=== PATIENT | male | born 1995 | race Caucasian/White ===

== ENCOUNTER 2021-11-25 08:19 | Emergency (ER) | payer SELFPAY ==
[2021-11-25 08:19] VITALS: BP 164/101; PULSE 80; RESP 18; TEMP 36.6; O2SAT 100; BMI 40.8
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
--- NOTE | 2021-11-25 09:34 | RAD_ITS ---
STUDY: X-RAY CHEST REASON FOR EXAM: Male, 26 years old. INJURY TECHNIQUE: Single AP portable view of the chest. COMPARISON: None. FINDINGS: The lungs are clear and expanded. There is no demonstrated pleural abnormality. Normal size heart. Normal mediastinum and mehreen. Normal visualized pulmonary arteries. Normal visualized aortic arch and descending thoracic aorta. Normal visualized thoracic spine. Normal visualized ribs, clavicles, and shoulders. There is no demonstrated abnormality of the visualized soft tissue structures of the upper abdomen. RAD/Chest 1 View (Portable) IMPRESSION: Normal x-ray examination of the chest. Electronically Signed: Everton Ashton MD at 10:10 EDT ,
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
== END 2021-11-25 11:49 | disposition home or self-care (01) ==
PROVIDERS: Emergency Provider Emergency Medicine; Visit Provider Emergency Medicine
DX: S43.402A Unspecified sprain of left shoulder joint, initial encounter (principal); S16.1XXA Strain of muscle, fascia and tendon at neck level, initial encounter; S20.20XA Contusion of thorax, unspecified, initial encounter; S90.31XA Contusion of right foot, initial encounter; S63.502A Unspecified sprain of left wrist, initial encounter; V43.62XA Car passenger injured in collision with other type car in traffic accident, initial encounter; Y92.488 Other paved roadways as the place of occurrence of the external cause
CPT/HCPCS: 71045; 73110; 73630; 99283

== ENCOUNTER 2022-01-05 22:25 | Emergency (ER) | payer SELFPAY ==
[2022-01-05 22:26] VITALS: BP 149/96; PULSE 142; RESP 22; TEMP 37.3; O2SAT 97; BMI 39.9
--- NOTE | 2022-01-05 22:54 | EKG12_ITS ---
Test Reason : DYSRHYTHMIA Blood Pressure : / mmHG Vent. Rate : 143 BPM Atrial Rate : 144 BPM P-R Int : 130 ms QRS Dur : 096 ms QT Int : 354 ms P-R-T Axes : 052 008 032 degrees QTc Int : 546 ms Sinus tachycardia Otherwise normal ECG Confirmed by RENAE THOMPSON, ELIA ([id number]), editorial cartoonist LYNNETTE ROCHA ([id number]) on 01/06/2022 11:43:34 AM Referred By: FELIPA Confirmed By:ELIA MACDONALD MD
[2022-01-05 23:03] VITALS: BP 155/71; PULSE 123; RESP 19; O2SAT 98
[2022-01-05 23:06] LABS: Red Blood Cells-Urine 0 SEEN /hpf (0-5); Squamous Epithelial Cells - UA 0 SEEN /hpf (0-5)
[2022-01-05 23:16] LABS: Absolute Lymphocyte Count 2.29 X10^3/uL (0.83-4.51); Absolute Neutrophil Count 6.6 X10^3/uL (2.0-7.7); Basophil# 0.05 X10^3/uL; Basophil% 0.5 % (0-1); Eosinophil# 0.05 X10^3/uL; Eosinophils% 0.5 % (0-5); Hematocrit 43.2 % (40-54); Hemoglobin 14.5 g/dL (13.0-16.5); Lymphocyte # 2.29 X10^3/ul (0.83-4.51); Lymphocyte % 23.7 % (19-41); Mean Corp Hgb Conc 33.6 g/dL (32-36); Mean Corpuscular Hgb 28.9 pg (27.0-32.0); Mean Corpuscular Volume 86.2 fL (80-94); Mean Platelet Vol. 10.6 fl (6.2-12.0); Monocyte# 0.68 X10^3/uL; NRBC Flagged by Analyzer 0 % (0-5); Neutrophil # 6.55 X10^3/uL (2.7-7.7); Platelet Count 342 K/mm3 (150-450); RBC Distribution Width CV 13.1 % (11.6-14.6); RBC Distribution Width SD 40.7 fl (35.1-43.9); Red Blood Count 5.01 M/mm3 (4.6-6.2); White Blood Count 9.7 K/mm3 (4.4-11.0)
[2022-01-05 23:35] LABS: Color, Urine Yellow (Yellow); Glucose, Dipstick Normal (Normal); Ketone-Dipstick 5 mg/dl (Negative); Leukocyte Esterase-Dipstick 25 /ul (Negative); Nitrite-Dipstick Negative (Negative); Occult Blood-Urine 10 /ul (Negative); Protein-Dipstick 30 mg/dl (Negative); Urine Bilirubin Dipstick Negative (Negative); Urine Clarity Clear (Clear); Urine Urobilinogen 1 mg/dl (Normal)
[2022-01-05 23:46] LABS: Anion Gap 9 (5-15); BUN 17 mg/dL (7-18); BUN/Creat Ratio 13.3 RATIO (10-20); Calcium,Total 9.5 mg/dL (8.5-10.1); Chloride 106 mmol/L (98-107); Creatinine, Serum 1.28 mg/dL (0.70-1.30); EST Glomerular Filtration Rate 71 mL/min (>60); Est Glom Filt Rate - Afr Amer 86 mL/min (>60); Estimated Creatinine Clearance 89.51 ml/min; Glucose 119 mg/dL (74-106); Potassium 3.1 mmol/L (3.5-5.1); Sodium Level 138 mmol/L (136-145)
[2022-01-05 23:53] LABS: Bacteria 1+ /hpf (None Seen); Mucous, Urine 2+ /hpf (<or=2+); White Blood Cells 0-5 SEEN /hpf (0-5)
[2022-01-06] MEDS: Mag Hydrox/Al Hydrox/Simeth 30 ML UDC PO (00:21)
[2022-01-06] MEDS: 0.9% Normal Saline 1,000 ML 999 ML IV (00:21)
[2022-01-06] MEDS: LORazepam 2 MG/ML Syringe 1 MG IV (00:21)
[2022-01-06 00:27] LABS: AST(SGOT) 23 U/L (15-37); Alanine Aminotransfer ALT/SGPT 26 U/L (16-61); Albumin, Serum 4.5 g/dL (3.2-5.0); Alkaline Phosphatase 71 U/L (45-117); Bilirubin, Direct 0.13 mg/dL (0.00-0.30); Globulin 3.6 g/dL (2.2-4.2); Lipase 52 U/L (73-393); Protein, Total 8.1 g/dL (6.4-8.2)
[2022-01-06 01:31] VITALS: BP 148/71; PULSE 87; RESP 22; O2SAT 98
--- NOTE | 2022-01-06 01:59 | EDS_ITS ---
HPI History of Present Illness Chief Complaint: Abd Pain Narrative Narrative: Patient is a 26-year-old male who states that over the past month he has had persistent midepigastric abdominal pain that seems to be worse in the morning and with eating. He states because of this he has decreased what he is eating and has also lost approximately 30 pounds. He states that today he googled his symptoms and after doing so became very nervous and anxious and therefore comes to the hospital for evaluation. PFSH PFS Medical History (Updated 01/06/22 @ 02:[address] Scot Dumas, DO) Anxiety COVID-19 Home Medications lorazepam [Ativan] 1 mg PO TID PRN 5 Days #15 tab 01/06/22 [Rx Last Taken Unknown] pantoprazole [Protonix] 40 mg PO DAILY #30 tab 01/06/22 [Rx Last Taken Unknown] sucralfate [Carafate] 1 g PO BID #60 tab 01/06/22 [Rx Last Taken Unknown] Allergy/AdvReac Type Severity Reaction Status Date / Time No Known Allergies Allergy Verified 01/05/22 22:26 Social History Smoking Status: Never smoker ROS [facility] ED Constitutional Constitutional ED: Denies chills or fever(s) ENT ENT ED: Reports sore throat Cardiovascular Cardiovascular: Denies chest pain Respiratory/Chest Respiratory/Chest: Denies cough or dyspnea Gastrointestinal Gastrointestinal: Reports abdominal pain and nausea; Denies diarrhea or vomiting Genitourinary Genitourinary ED: Denies dysuria Musculoskeletal Musculoskeletal: Denies myalgias Integumentary Denies rash Neurologic Neurologic: Denies headache(s) Psychiatric Psychiatric: Reports anxiety; Denies suicidal ideation or suicidal thoughts Hematologic/Lymphatic Hematologic/Lymphatic: Denies easy bleeding or easy bruising EXAM Physical Exam Const Vital Signs: 01/05/22 22:26 01/05/22 23:03 01/06/22 01:31 Temperature 99.1 F Temperature Source Temporal Pulse Rate 142 H 123 H 87 Respiratory Rate 22 H 19 H 22 H Blood Pressure 149/96 H 155/71 H 148/71 H Blood Pressure Mean 113 99 96 Pulse Ox 97 98 98 Oxygen Delivery Method Room Air Room Air Room Air 01/06/22 02:08 Temperature Temperature Source Pulse Rate 82 Respiratory Rate 16 Blood Pressure 147/64 H Blood Pressure Mean Pulse Ox 97 Oxygen Delivery Method Positive well nourished, well developed and obese General Appearance ED: well developed Nutritional Appearance: obese HEENT Reports dry mucous membranes Mouth ED: Yes dry mucous membranes Mouth: dry mucous membranes Eyes PERRL and EOMs intact bilaterally General Eye ED: Negative for scleral icterus Neck supple Resp normal respiratory effort and clear to auscultation bilaterally Cardio regular rhythm Rate: tachycardic GI non-distended and no masses GI Narrative: There is mild pain with palpation in the midepigastric region without voluntary guarding or rigidity. No pulsatile mass or fluid wave Auscultation: normoactive bowel sounds Palpation: soft Extremity normal to inspection Neuro oriented x3 and CN's II-XII intact bilaterally Sensorium / Orientation: alert Motor Exam: strength 5/5 throughout Psych Mood & Affect: anxious Skin no rashes or lesions noted General Skin Exam: Negative for jaundice MDM MDM MDM Narrative Medical decision making narrative: Patient arrived to the ER mildly hypertensive and was also tachycardic but EKG showed this was sinus rhythm. Patient related his tachycardia to his anxiety and once he was able to rest and relax did have spontaneous improvement of his heart rate to below 100. His constellation of symptoms are concerning for gastritis versus ulcer formation. Secondary to this basic blood work will be obtained. As the patient is not having a rigid abdomen I do not feel there is need for a CT scan and therefore I feel no need for x-ray or CAT scan at this time. Blood work revealed no clinically significant findings with just mild decreased his potassium at 3.1. After IV hydration treatment GI cocktail Protonix and Ativan patient did report feeling better. Therefore at this time patient is safe for discharge as his work-up reveals no clinically significant findings in his abdomen remains soft and nonsurgical. He was advised to follow-up with GI to discuss need for EGD based on his persistent symptoms Lab Data Attestation: I reviewed the patient's lab results. Labs: Laboratory Results - last 24 hr 01/05/22 01/05/22 01/05/22 22:43 23:01 23:01 WBC 9.7 RBC 5.01 Hgb 14.5 Hct 43.2 MCV 86.2 MCH 28.9 MCHC 33.6 RDW Std Deviation 40.7 RDW Coeff of Maribel 13.1 Plt Count 342 MPV 10.6 Immature Gran % (Auto) 0.300 Neut % (Auto) 68.0 Lymph % (Auto) 23.7 Morrill % (Auto) 7.0 Eos % (Auto) 0.5 Baso % (Auto) 0.5 Absolute Neuts (auto) 6.6 Absolute Lymphs (auto) 2.29 Nucleated RBC % 0 Sodium 138 Potassium 3.1 L Chloride 106 Carbon Dioxide 23.0 Anion Gap 9 BUN 17 Creatinine 1.28 Estim Creat Clear Calc 89.51 Est GFR (MDRD) Af Amer 86 Est GFR (MDRD) Non-Af 71 BUN/Creatinine Ratio 13.3 Glucose 119 H Calcium 9.5 Total Bilirubin Direct Bilirubin AST ALT Alkaline Phosphatase Total Protein Albumin Globulin Lipase Urine Color Yellow Urine Clarity Clear Urine pH 6.0 Ur Specific [place] 1.030 Urine Protein 30 H Urine Glucose (UA) Normal Urine Ketones 5 H Urine Occult Blood 10 H Urine Nitrite Negative Urine Bilirubin Negative Urine Urobilinogen 1 H Ur Leukocyte Esterase 25 H Urine RBC 0 SEEN Urine WBC 0-5 SEEN Ur Squamous Epith Cells 0 SEEN Urine Bacteria 1+ Urine Mucus 2+ 01/05/22 23:01 WBC RBC Hgb Hct MCV MCH MCHC RDW Std Deviation RDW Coeff of Maribel Plt Count MPV Immature Gran % (Auto) Neut % (Auto) Lymph % (Auto) Morrill % (Auto) Eos % (Auto) Baso % (Auto) Absolute Neuts (auto) Absolute Lymphs (auto) Nucleated RBC % Sodium Potassium Chloride Carbon Dioxide Anion Gap BUN Creatinine Estim Creat Clear Calc Est GFR (MDRD) Af Amer Est GFR (MDRD) Non-Af BUN/Creatinine Ratio Glucose Calcium Total Bilirubin 0.70 Direct Bilirubin 0.13 AST 23 ALT 26 Alkaline Phosphatase 71 Total Protein 8.1 Albumin 4.5 Globulin 3.6 Lipase 52 L Urine Color Urine Clarity Urine pH Ur Specific [place] Urine Protein Urine Glucose (UA) Urine Ketones Urine Occult Blood Urine Nitrite Urine Bilirubin Urine Urobilinogen Ur Leukocyte Esterase Urine RBC Urine WBC Ur Squamous Epith Cells Urine Bacteria Urine Mucus Discharge Plan Triage Chief Complaint: Abd Pain ED Provider: Scot Dumas Dx/Rx/DC Orders Clinical Impression: Gastritis, Anxiety Instructions: ED Anxiety Reaction, ED PEPTIC ULCER vs GASTRITIS Prescriptions: New sucralfate [Carafate] 1 gram tablet 1 g PO BID Qty: 60 RF: 0 pantoprazole [Protonix] 40 mg tablet,delayed release (DR/EC) 40 mg PO DAILY Qty: 30 RF: 0 lorazepam [Ativan] 1 mg tablet 1 mg PO TID PRN (Reason: anxiety) 5 Days Qty: 15 RF: 0 Primary Care Provider: Care Physician,No Primary Referrals: Friend,DO Simeon [STAFF PHYSICIAN] - 1-2 Weeks Care Physician,No Primary [Primary Care Provider] - Disposition Disposition: Home, Self Care Discharge Date/Time: 01/06/22 02:21
[2022-01-06 02:08] VITALS: BP 147/64; PULSE 82; RESP 16; O2SAT 97
== END 2022-01-06 02:21 | disposition home or self-care (01) ==
PROVIDERS: Emergency Provider Emergency Medicine; Visit Provider Emergency Medicine
DX: K29.70 Gastritis, unspecified, without bleeding (principal); F41.9 Anxiety disorder, unspecified; R10.31 Right lower quadrant pain; Z86.16 Personal history of COVID-19; Z79.899 Other long term (current) drug therapy
CPT/HCPCS: 80048; 80076; 81001; 83690; 85025; 93005; 96365; 96375; 99282; J7030; A4216

== ENCOUNTER 2024-05-26 05:27 | Emergency (ER) | payer BC, SELFPAY ==
[2024-05-26] VITALS (12 sets, daily range): BP systolic 126–161; BP diastolic 76–99; PULSE 74–97; RESP 16–26; TEMP 36.4–36.7; O2SAT 96–100; BMI 38.5
--- NOTE | 2024-05-26 05:56 | CT_ITS ---
EXAM: CT HEAD WITHOUT INTRAVENOUS CONTRAST CLINICAL INDICATION: SEIZURE SEIZURE TECHNIQUE: Multiple axial images were obtained of the head without intravenous contrast. This CT exam was performed using one or more of the following dose reduction techniques: automated exposure control, adjustment of the mA and/or kV according to patient size, and/or use of iterative reconstruction technique. RADIATION DOSE: CTDIvol = 44.99 mGy, DLP = 812.98 mGy-cm COMPARISON: CT scan brain 05/10/2012. FINDINGS: BRAIN AND EXTRA-AXIAL SPACES: Unremarkable. No intra- or extra-axial hemorrhage. No evidence of acute infarct. No intracranial mass or mass effect. There is preservation of the gonzalez/white matter interface. Posterior fossa structures are unremarkable. Ventricles are appropriate for age. No hydrocephalus. Basal cisterns are patent. BONES/JOINTS: Unremarkable. No discrete lytic or blastic abnormalities. VASCULATURE: There are dilated vascular structures in the paramidline high right frontal region, which were also present on the 2012 exam. 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 Would recommend MRI/MRA for further evaluation, if not previously done. SINUSES: Unremarkable as visualized. Clear. MASTOID AIR CELLS: Unremarkable. Clear. ORBITS: Visualized globes, extraocular muscles, optic nerves and retrobulbar fat appear unremarkable. SELLA: There is prominent CSF in the pituitary fossa with a thin rim of pituitary tissue, consistent with a partial empty sella syndrome. CT/Brain/Head without Contrast IMPRESSION: 1. 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 Recommend MRI/MRA for further characterization, if not previously done. 2. No demonstrated acute intracranial process. Electronically Signed: Jignesh Blandon MD at 6:43 EDT ,
--- NOTE | 2024-05-26 05:56 | RAD_ITS ---
EXAM: XR LEFT SHOULDER COMPLETE, 2 OR MORE VIEWS CLINICAL INDICATION: PAIN PAIN TECHNIQUE: Two or more views of the left shoulder. COMPARISON: Chest x-ray 04/17/2011. FINDINGS: BONES/JOINTS: There is an anterior shoulder dislocation. There is an acute traumatic vertical fracture through the base of the greater humeral tubercle, with substantial lateral displacement relative to the humeral head. No sclerotic or destructive changes observed. SOFT TISSUES: Unremarkable. No soft tissue swelling or gas. No radiopaque foreign body. RAD/Shoulder min 2 Views IMPRESSION: Anterior shoulder dislocation. Displaced fracture of the greater humeral tubercle. Electronically Signed: Jignesh Blandon MD at 7:03 EDT Reading Location ID and State: [facility] / [place] , Service support ,
--- NOTE | 2024-05-26 06:00 | EX.ED.DYSGE1 ---
HPI <Dr. Scot Dumas DO - Last Filed: 05/28/24 22:00> History of Present Illness Chief Complaint: Alt LOC Informant: patient and spouse/S.O. Narrative Narrative: Patient is a 28-year-old male with anxiety. EMS was called because while patient was sleeping his felt that he stopped breathing and noticed that there was mild shaking and stated he became unresponsive. also reports that he seemed confused when he did awake. However when EMS arrived the patient was up and combative and not responding to commands. The patient complains of left shoulder pain at this time but denies any known trauma or excessive activity. Patient does admit to daily marijuana use but states he gets his marijuana from a reputable source and he does not have any concern that it was laced or contaminated. He also denies any significant alcohol use that would suggest alcohol withdrawal and he denies any benzodiazepine use which could precipitate benzodiazepine withdrawal as a cause of seizure activity. [facility] <Dr. Scot Dumas DO - Last Filed: 05/28/24 22:00> [facility] Medical History Marijuana smoker Anxiety COVID-19 Home Medications ?Medication ?Instructions ?Recorded ?Last Taken ?Type escitalopram oxalate 20 mg tablet 20 mg PO DAILY 05/26/24 Unknown History omeprazole 20 mg capsule,delayed 40 mg PO DAILY 05/26/24 Unknown History release oxycodone-acetaminophen 5 mg-325 1 tab PO Q6H PRN pain 3 days #12 05/26/24 Unknown Rx mg tablet (Percocet) tabs potassium chloride 10 mEq 10 meq PO DAILY 7 days #7 caps 05/26/24 Unknown Rx capsule,extended release Allergy/AdvReac Type Severity Reaction Status Date / Time No Known Allergies Allergy Verified 05/26/24 05:29 Family History no significant family his Surgical History no surgical history Social History Smoking Status: Current every day smoker tobacco type: e-cigarettes ROS <Dr. Scot Dumas DO - Last Filed: 05/28/24 22:00> ROS ED Constitutional Constitutional ED: Denies chills or fever(s) Eyes Eyes: Denies blurry vision or change in vision ENT ENT ED: Denies sore throat Cardiovascular Cardiovascular: Denies chest pain Respiratory/Chest Respiratory/Chest: Denies cough or dyspnea Gastrointestinal Gastrointestinal: Denies abdominal pain, diarrhea, nausea or vomiting Genitourinary Genitourinary ED: Denies dysuria Musculoskeletal Musculoskeletal: Reports other Details: Positive left shoulder pain Integumentary Denies rash Neurologic Neurologic: Reports other Details: Transient altered level of consciousness and potential seizure ; Denies headache(s) Psychiatric Psychiatric: Reports anxiety Hematologic/Lymphatic Hematologic/Lymphatic: Denies easy bleeding or easy bruising EXAM <Dr. Scot Dumas, DO - Last Filed: 05/28/24 22:00> Physical Exam Const Vital Signs: 05/26/24 05:30 05/26/24 06:39 05/26/24 06:49 Temperature 97.5 F L 97.8 F Temperature Source Oral Pulse Rate 85 83 Pulse Rate [1 (Initial Baseline)] 83 Pulse Rate [2] 95 Pulse Rate [3] 96 Pulse Rate [4] 97 Pulse Rate [5] 94 Pulse Rate [6] 90 Pulse Rate [7] 81 Pulse Rate [8] 83 Pulse Rate [9] 74 Respiratory Rate 20 H 20 H Respiratory Rate [1 (Initial Baseline)] 20 H Respiratory Rate [2] 20 H Respiratory Rate [3] 20 H Respiratory Rate [4] 20 H Respiratory Rate [5] 20 H Respiratory Rate [6] 20 H Respiratory Rate [7] 20 H Respiratory Rate [8] 20 H Respiratory Rate [9] 26 H Blood Pressure 156/89 H 147/99 H Blood Pressure [1 (Initial Baseline)] 147/99 H Blood Pressure [9] 126/76 H Blood Pressure Mean 111 Pulse Ox 97 97 Oxygen Delivery Method Room Air Room Air Oxygen Delivery Method [1 (Initial Baseline)] Room Air Oxygen Delivery Method [2] Room Air Oxygen Delivery Method [3] Room Air Oxygen Delivery Method [4] Room Air Oxygen Delivery Method [5] Room Air Oxygen Delivery Method [6] Room Air Oxygen Delivery Method [7] Room Air Oxygen Delivery Method [8] Room Air Oxygen Delivery Method [9] Room Air EtCo2 (Normal 35-45 , high quality CPR 10-20 & ROSC>/=40mmHg 40 EtCo2 (Normal 35-45 , high quality CPR 10-20 & ROSC>/=40mmHg [1 (Initial Baseline)] 40 EtCo2 (Normal 35-45 , high quality CPR 10-20 & ROSC>/=40mmHg [2] 40 EtCo2 (Normal 35-45 , high quality CPR 10-20 & ROSC>/=40mmHg [3] 40 EtCo2 (Normal 35-45 , high quality CPR 10-20 & ROSC>/=40mmHg [4] 39 EtCo2 (Normal 35-45 , high quality CPR 10-20 & ROSC>/=40mmHg [5] 39 EtCo2 (Normal 35-45 , high quality CPR 10-20 & ROSC>/=40mmHg [6] 39 EtCo2 (Normal 35-45 , high quality CPR 10-20 & ROSC>/=40mmHg [7] 39 EtCo2 (Normal 35-45 , high quality CPR 10-20 & ROSC>/=40mmHg [8] 39 EtCo2 (Normal 35-45 , high quality CPR 10-20 & ROSC>/=40mmHg [9] 38 05/26/24 07:00 05/26/24 07:05 05/26/24 07:10 Temperature Temperature Source Pulse Rate Pulse Rate [1 (Initial Baseline)] Pulse Rate [2] Pulse Rate [3] Pulse Rate [4] Pulse Rate [5] Pulse Rate [6] Pulse Rate [7] Pulse Rate [8] Pulse Rate [9] Respiratory Rate Respiratory Rate [1 (Initial Baseline)] Respiratory Rate [2] Respiratory Rate [3] Respiratory Rate [4] Respiratory Rate [5] Respiratory Rate [6] Respiratory Rate [7] Respiratory Rate [8] Respiratory Rate [9] Blood Pressure Blood Pressure [1 (Initial Baseline)] Blood Pressure [9] Blood Pressure Mean Pulse Ox Oxygen Delivery Method Room Air Room Air Room Air Oxygen Delivery Method [1 (Initial Baseline)] Oxygen Delivery Method [2] Oxygen Delivery Method [3] Oxygen Delivery Method [4] Oxygen Delivery Method [5] Oxygen Delivery Method [6] Oxygen Delivery Method [7] Oxygen Delivery Method [8] Oxygen Delivery Method [9] EtCo2 (Normal 35-45 , high quality CPR 10-20 & ROSC>/=40mmHg 38 39 36 EtCo2 (Normal 35-45 , high quality CPR 10-20 & ROSC>/=40mmHg [1 (Initial Baseline)] EtCo2 (Normal 35-45 , high quality CPR 10-20 & ROSC>/=40mmHg [2] EtCo2 (Normal 35-45 , high quality CPR 10-20 & ROSC>/=40mmHg [3] EtCo2 (Normal 35-45 , high quality CPR 10-20 & ROSC>/=40mmHg [4] EtCo2 (Normal 35-45 , high quality CPR 10-20 & ROSC>/=40mmHg [5] EtCo2 (Normal 35-45 , high quality CPR 10-20 & ROSC>/=40mmHg [6] EtCo2 (Normal 35-45 , high quality CPR 10-20 & ROSC>/=40mmHg [7] EtCo2 (Normal 35-45 , high quality CPR 10-20 & ROSC>/=40mmHg [8] EtCo2 (Normal 35-45 , high quality CPR 10-20 & ROSC>/=40mmHg [9] 05/26/24 07:15 05/26/24 07:29 05/26/24 09:00 Temperature Temperature Source Pulse Rate 76 90 Pulse Rate [1 (Initial Baseline)] Pulse Rate [2] Pulse Rate [3] Pulse Rate [4] Pulse Rate [5] Pulse Rate [6] Pulse Rate [7] Pulse Rate [8] Pulse Rate [9] Respiratory Rate 20 H 17 Respiratory Rate [1 (Initial Baseline)] Respiratory Rate [2] Respiratory Rate [3] Respiratory Rate [4] Respiratory Rate [5] Respiratory Rate [6] Respiratory Rate [7] Respiratory Rate [8] Respiratory Rate [9] Blood Pressure 142/92 H 142/83 H Blood Pressure [1 (Initial Baseline)] Blood Pressure [9] Blood Pressure Mean 108 102 Pulse Ox 100 99 Oxygen Delivery Method Room Air Room Air Room Air Oxygen Delivery Method [1 (Initial Baseline)] Oxygen Delivery Method [2] Oxygen Delivery Method [3] Oxygen Delivery Method [4] Oxygen Delivery Method [5] Oxygen Delivery Method [6] Oxygen Delivery Method [7] Oxygen Delivery Method [8] Oxygen Delivery Method [9] EtCo2 (Normal 35-45 , high quality CPR 10-20 & ROSC>/=40mmHg 36 EtCo2 (Normal 35-45 , high quality CPR 10-20 & ROSC>/=40mmHg [1 (Initial Baseline)] EtCo2 (Normal 35-45 , high quality CPR 10-20 & ROSC>/=40mmHg [2] EtCo2 (Normal 35-45 , high quality CPR 10-20 & ROSC>/=40mmHg [3] EtCo2 (Normal 35-45 , high quality CPR 10-20 & ROSC>/=40mmHg [4] EtCo2 (Normal 35-45 , high quality CPR 10-20 & ROSC>/=40mmHg [5] EtCo2 (Normal 35-45 , high quality CPR 10-20 & ROSC>/=40mmHg [6] EtCo2 (Normal 35-45 , high quality CPR 10-20 & ROSC>/=40mmHg [7] EtCo2 (Normal 35-45 , high quality CPR 10-20 & ROSC>/=40mmHg [8] EtCo2 (Normal 35-45 , high quality CPR 10-20 & ROSC>/=40mmHg [9] 05/26/24 10:56 05/26/24 13:00 Temperature Temperature Source Pulse Rate 78 90 Pulse Rate [1 (Initial Baseline)] Pulse Rate [2] Pulse Rate [3] Pulse Rate [4] Pulse Rate [5] Pulse Rate [6] Pulse Rate [7] Pulse Rate [8] Pulse Rate [9] Respiratory Rate 18 17 Respiratory Rate [1 (Initial Baseline)] Respiratory Rate [2] Respiratory Rate [3] Respiratory Rate [4] Respiratory Rate [5] Respiratory Rate [6] Respiratory Rate [7] Respiratory Rate [8] Respiratory Rate [9] Blood Pressure 147/93 H 146/88 H Blood Pressure [1 (Initial Baseline)] Blood Pressure [9] Blood Pressure Mean 111 107 Pulse Ox 98 98 Oxygen Delivery Method Room Air Room Air Oxygen Delivery Method [1 (Initial Baseline)] Oxygen Delivery Method [2] Oxygen Delivery Method [3] Oxygen Delivery Method [4] Oxygen Delivery Method [5] Oxygen Delivery Method [6] Oxygen Delivery Method [7] Oxygen Delivery Method [8] Oxygen Delivery Method [9] EtCo2 (Normal 35-45 , high quality CPR 10-20 & ROSC>/=40mmHg EtCo2 (Normal 35-45 , high quality CPR 10-20 & ROSC>/=40mmHg [1 (Initial Baseline)] EtCo2 (Normal 35-45 , high quality CPR 10-20 & ROSC>/=40mmHg [2] EtCo2 (Normal 35-45 , high quality CPR 10-20 & ROSC>/=40mmHg [3] EtCo2 (Normal 35-45 , high quality CPR 10-20 & ROSC>/=40mmHg [4] EtCo2 (Normal 35-45 , high quality CPR 10-20 & ROSC>/=40mmHg [5] EtCo2 (Normal 35-45 , high quality CPR 10-20 & ROSC>/=40mmHg [6] EtCo2 (Normal 35-45 , high quality CPR 10-20 & ROSC>/=40mmHg [7] EtCo2 (Normal 35-45 , high quality CPR 10-20 & ROSC>/=40mmHg [8] EtCo2 (Normal 35-45 , high quality CPR 10-20 & ROSC>/=40mmHg [9] Positive well nourished, well developed and obese General Appearance ED: well developed; Negative for pallor Nutritional Appearance: obese HEENT HEENT Narrative: Positive right sided lateral tongue biting concerning for seizure activity Otherwise no airway edema or compromise or secondary findings to suggest infection Eyes EOMs intact bilaterally Eyes Narrative: Pupils are dilated and slightly sluggish to respond to light Extraocular motions are intact No hyphema Neck supple Neck Narrative: No nuchal rigidity or meningeal signs Chest Wall palpation of chest normal Resp normal respiratory effort and clear to auscultation bilaterally Cardio regular rate and regular rhythm GI normal to inspection, nondistended, normoactive bowel sounds, non-tender, non-distended and no masses Auscultation: normoactive bowel sounds Palpation: soft Extremity Extremity Narrative: Left upper extremity is neurovascularly intact. Patient has pain on palpation along the lateral aspect of the left shoulder near the deltoid muscle. There is no obvious bony deformity or joint effusion. Negative sulcus sign. Active range of motion is decreased secondary to pain. Remainder of the exam is normal Neuro oriented x3, CN's II-XII intact bilaterally and no sensory deficits noted Sensorium / Orientation: alert Motor Exam: strength 5/5 throughout Psych mental status grossly normal Skin no rashes or lesions noted General Skin Exam: Negative for jaundice or pallor <Dr. Bill Del Toro MD - Last Filed: 05/26/24 15:02> Physical Exam Const Vital Signs: 05/26/24 05:30 05/26/24 06:39 05/26/24 06:49 Temperature 97.5 F L 97.8 F Temperature Source Oral Pulse Rate 85 83 Pulse Rate [1 (Initial Baseline)] 83 Pulse Rate [2] 95 Pulse Rate [3] 96 Pulse Rate [4] 97 Pulse Rate [5] 94 Pulse Rate [6] 90 Pulse Rate [7] 81 Pulse Rate [8] 83 Pulse Rate [9] 74 Respiratory Rate 20 H 20 H Respiratory Rate [1 (Initial Baseline)] 20 H Respiratory Rate [2] 20 H Respiratory Rate [3] 20 H Respiratory Rate [4] 20 H Respiratory Rate [5] 20 H Respiratory Rate [6] 20 H Respiratory Rate [7] 20 H Respiratory Rate [8] 20 H Respiratory Rate [9] 26 H Blood Pressure 156/89 H 147/99 H Blood Pressure [1 (Initial Baseline)] 147/99 H Blood Pressure [9] 126/76 H Blood Pressure Mean 111 Pulse Ox 97 97 Oxygen Delivery Method Room Air Room Air Oxygen Delivery Method [1 (Initial Baseline)] Room Air Oxygen Delivery Method [2] Room Air Oxygen Delivery Method [3] Room Air Oxygen Delivery Method [4] Room Air Oxygen Delivery Method [5] Room Air Oxygen Delivery Method [6] Room Air Oxygen Delivery Method [7] Room Air Oxygen Delivery Method [8] Room Air Oxygen Delivery Method [9] Room Air EtCo2 (Normal 35-45 , high quality CPR 10-20 & ROSC>/=40mmHg 40 EtCo2 (Normal 35-45 , high quality CPR 10-20 & ROSC>/=40mmHg [1 (Initial Baseline)] 40 EtCo2 (Normal 35-45 , high quality CPR 10-20 & ROSC>/=40mmHg [2] 40 EtCo2 (Normal 35-45 , high quality CPR 10-20 & ROSC>/=40mmHg [3] 40 EtCo2 (Normal 35-45 , high quality CPR 10-20 & ROSC>/=40mmHg [4] 39 EtCo2 (Normal 35-45 , high quality CPR 10-20 & ROSC>/=40mmHg [5] 39 EtCo2 (Normal 35-45 , high quality CPR 10-20 & ROSC>/=40mmHg [6] 39 EtCo2 (Normal 35-45 , high quality CPR 10-20 & ROSC>/=40mmHg [7] 39 EtCo2 (Normal 35-45 , high quality CPR 10-20 & ROSC>/=40mmHg [8] 39 EtCo2 (Normal 35-45 , high quality CPR 10-20 & ROSC>/=40mmHg [9] 38 05/26/24 07:00 05/26/24 07:05 05/26/24 07:10 Temperature Temperature Source Pulse Rate Pulse Rate [1 (Initial Baseline)] Pulse Rate [2] Pulse Rate [3] Pulse Rate [4] Pulse Rate [5] Pulse Rate [6] Pulse Rate [7] Pulse Rate [8] Pulse Rate [9] Respiratory Rate Respiratory Rate [1 (Initial Baseline)] Respiratory Rate [2] Respiratory Rate [3] Respiratory Rate [4] Respiratory Rate [5] Respiratory Rate [6] Respiratory Rate [7] Respiratory Rate [8] Respiratory Rate [9] Blood Pressure Blood Pressure [1 (Initial Baseline)] Blood Pressure [9] Blood Pressure Mean Pulse Ox Oxygen Delivery Method Room Air Room Air Room Air Oxygen Delivery Method [1 (Initial Baseline)] Oxygen Delivery Method [2] Oxygen Delivery Method [3] Oxygen Delivery Method [4] Oxygen Delivery Method [5] Oxygen Delivery Method [6] Oxygen Delivery Method [7] Oxygen Delivery Method [8] Oxygen Delivery Method [9] EtCo2 (Normal 35-45 , high quality CPR 10-20 & ROSC>/=40mmHg 38 39 36 EtCo2 (Normal 35-45 , high quality CPR 10-20 & ROSC>/=40mmHg [1 (Initial Baseline)] EtCo2 (Normal 35-45 , high quality CPR 10-20 & ROSC>/=40mmHg [2] EtCo2 (Normal 35-45 , high quality CPR 10-20 & ROSC>/=40mmHg [3] EtCo2 (Normal 35-45 , high quality CPR 10-20 & ROSC>/=40mmHg [4] EtCo2 (Normal 35-45 , high quality CPR 10-20 & ROSC>/=40mmHg [5] EtCo2 (Normal 35-45 , high quality CPR 10-20 & ROSC>/=40mmHg [6] EtCo2 (Normal 35-45 , high quality CPR 10-20 & ROSC>/=40mmHg [7] EtCo2 (Normal 35-45 , high quality CPR 10-20 & ROSC>/=40mmHg [8] EtCo2 (Normal 35-45 , high quality CPR 10-20 & ROSC>/=40mmHg [9] 05/26/24 07:15 05/26/24 07:29 05/26/24 09:00 Temperature Temperature Source Pulse Rate 76 90 Pulse Rate [1 (Initial Baseline)] Pulse Rate [2] Pulse Rate [3] Pulse Rate [4] Pulse Rate [5] Pulse Rate [6] Pulse Rate [7] Pulse Rate [8] Pulse Rate [9] Respiratory Rate 20 H 17 Respiratory Rate [1 (Initial Baseline)] Respiratory Rate [2] Respiratory Rate [3] Respiratory Rate [4] Respiratory Rate [5] Respiratory Rate [6] Respiratory Rate [7] Respiratory Rate [8] Respiratory Rate [9] Blood Pressure 142/92 H 142/83 H Blood Pressure [1 (Initial Baseline)] Blood Pressure [9] Blood Pressure Mean 108 102 Pulse Ox 100 99 Oxygen Delivery Method Room Air Room Air Room Air Oxygen Delivery Method [1 (Initial Baseline)] Oxygen Delivery Method [2] Oxygen Delivery Method [3] Oxygen Delivery Method [4] Oxygen Delivery Method [5] Oxygen Delivery Method [6] Oxygen Delivery Method [7] Oxygen Delivery Method [8] Oxygen Delivery Method [9] EtCo2 (Normal 35-45 , high quality CPR 10-20 & ROSC>/=40mmHg 36 EtCo2 (Normal 35-45 , high quality CPR 10-20 & ROSC>/=40mmHg [1 (Initial Baseline)] EtCo2 (Normal 35-45 , high quality CPR 10-20 & ROSC>/=40mmHg [2] EtCo2 (Normal 35-45 , high quality CPR 10-20 & ROSC>/=40mmHg [3] EtCo2 (Normal 35-45 , high quality CPR 10-20 & ROSC>/=40mmHg [4] EtCo2 (Normal 35-45 , high quality CPR 10-20 & ROSC>/=40mmHg [5] EtCo2 (Normal 35-45 , high quality CPR 10-20 & ROSC>/=40mmHg [6] EtCo2 (Normal 35-45 , high quality CPR 10-20 & ROSC>/=40mmHg [7] EtCo2 (Normal 35-45 , high quality CPR 10-20 & ROSC>/=40mmHg [8] EtCo2 (Normal 35-45 , high quality CPR 10-20 & ROSC>/=40mmHg [9] 05/26/24 10:56 05/26/24 13:00 Temperature Temperature Source Pulse Rate 78 90 Pulse Rate [1 (Initial Baseline)] Pulse Rate [2] Pulse Rate [3] Pulse Rate [4] Pulse Rate [5] Pulse Rate [6] Pulse Rate [7] Pulse Rate [8] Pulse Rate [9] Respiratory Rate 18 17 Respiratory Rate [1 (Initial Baseline)] Respiratory Rate [2] Respiratory Rate [3] Respiratory Rate [4] Respiratory Rate [5] Respiratory Rate [6] Respiratory Rate [7] Respiratory Rate [8] Respiratory Rate [9] Blood Pressure 147/93 H 146/88 H Blood Pressure [1 (Initial Baseline)] Blood Pressure [9] Blood Pressure Mean 111 107 Pulse Ox 98 98 Oxygen Delivery Method Room Air Room Air Oxygen Delivery Method [1 (Initial Baseline)] Oxygen Delivery Method [2] Oxygen Delivery Method [3] Oxygen Delivery Method [4] Oxygen Delivery Method [5] Oxygen Delivery Method [6] Oxygen Delivery Method [7] Oxygen Delivery Method [8] Oxygen Delivery Method [9] EtCo2 (Normal 35-45 , high quality CPR 10-20 & ROSC>/=40mmHg EtCo2 (Normal 35-45 , high quality CPR 10-20 & ROSC>/=40mmHg [1 (Initial Baseline)] EtCo2 (Normal 35-45 , high quality CPR 10-20 & ROSC>/=40mmHg [2] EtCo2 (Normal 35-45 , high quality CPR 10-20 & ROSC>/=40mmHg [3] EtCo2 (Normal 35-45 , high quality CPR 10-20 & ROSC>/=40mmHg [4] EtCo2 (Normal 35-45 , high quality CPR 10-20 & ROSC>/=40mmHg [5] EtCo2 (Normal 35-45 , high quality CPR 10-20 & ROSC>/=40mmHg [6] EtCo2 (Normal 35-45 , high quality CPR 10-20 & ROSC>/=40mmHg [7] EtCo2 (Normal 35-45 , high quality CPR 10-20 & ROSC>/=40mmHg [8] EtCo2 (Normal 35-45 , high quality CPR 10-20 & ROSC>/=40mmHg [9] [facility] <Dr. Scot Dumas, DO - Last Filed: 05/28/24 22:00> [facility] Narrative Medical decision making narrative: Patient arrived to ER hypertensive otherwise with stable vitals. reported that he was unresponsive with some shaking in bed and had questionable loss of breathing as well as confusion after the incident. His exam shows tongue biting and he has shoulder pain with no report of trauma or excessive activity. There is concern that he had a seizure while sleeping. This could be secondary to potential brain bleed or mass or electrolyte abnormalities such as hyponatremia. Secondary to this a head CT was obtained. With his report of shoulder pain there is concern for dislocation and/or fracture so shoulder x-ray was added. Shoulder x-ray did confirm a anterior dislocation with fracture of the greater tubercle. Secondary to the dislocation he underwent conscious sedation as documented below. The patient's workup shows leukocytosis with slight lactic acidosis which is most likely stress response secondary to the seizure. His potassium is slightly low at 3 but this should not be enough to stimulate a seizure activity. He denied alcohol or benzodiazepine use which could precipitated withdrawal seizure. Head CT revealed no bleed or mass. However the radiologist did note a potential vascular malformation in the frontal lobe. Secondary to this he recommends an MRI and MRA. Therefore those studies will be obtained this morning to further assess the cause of his potential symptoms. While those studies are still pending the patient will be signed out to the day physician Dr. Del Toro Patient underwent conscious sedation with closed reduction. Patient was given a total of 140 mg of propofol and 5 mg of Versed. After achieving good anesthesia traction countertraction was applied and there was spontaneous relocation of his shoulder joint. Confirmation was by x-ray and he was placed in a sling and swath following the reduction. Patient tolerated the procedure well without complication History & Record Review Discussion w/independent historian: EMS personnel, Patient and Family Lab Data Attestation: I reviewed the patient's lab results. Labs: Laboratory Results - last 24 hr 05/26/24 05/26/24 05/26/24 05:59 06:02 10:12 WBC 13.2 H RBC 4.92 Hgb 14.4 Hct 44.6 MCV 90.7 MCH 29.3 MCHC 32.3 RDW Std Deviation 46.0 H RDW Coeff of Maribel 13.7 Plt Count 304 MPV 10.7 Immature Gran % (Auto) 1.400 H Neut % (Auto) 61.9 Lymph % (Auto) 26.8 [place] % (Auto) 6.1 Eos % (Auto) 3.2 Baso % (Auto) 0.6 Absolute Neuts (auto) 8.2 H Absolute Lymphs (auto) 3.54 Nucleated RBC % 0 Sodium 138 Potassium 3.0 L Chloride 107 Carbon Dioxide 25.0 Anion Gap 6 BUN 15 Creatinine 1.07 Estim Creat Clear Calc 133.25 Est GFR (MDRD) Af Amer 105 Est GFR (MDRD) Non-Af 86 BUN/Creatinine Ratio 14.0 Glucose 139 H Lactic Acid 2.3 H* 2.7 H* Calcium 8.3 L Magnesium 1.8 Radiography Diagnostic Testing: Clinical Impression(s) from Imaging Studies Brain CT 05/26/24 05:56 IMPRESSION: 1. 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 Recommend MRI/MRA for further characterization, if not previously done. 2. No demonstrated acute intracranial process. Electronically Signed: Jignesh Blandon MD at 6:43 EDT , Shoulder X-Ray 05/26/24 05:56 IMPRESSION: Anterior shoulder dislocation. Displaced fracture of the greater humeral tubercle. Electronically Signed: Jignesh Blandon MD at 7:03 EDT , Shoulder X-Ray 05/26/24 07:00 IMPRESSION: 1. Successful reduction of anterior shoulder dislocation. 2. Fracture through the base of the greater humeral tubercle, with inferior displacement. Electronically Signed: Jignesh Blandon MD at 7:49 EDT , Brain MRI 05/26/24 07:18 IMPRESSION: 1. 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 The overall size of the AVM nidus is 3.3 x 2.3 x 3.7 cm. This has superficial cortical draining veins draining into the superior sagittal sinus without obvious deep draining veins. The dominant dysplastic arterial feeder comes from the right anterior pericallosal artery and smaller arterial feeders coming from the right middle cerebral artery and right medial lenticulostriate artery. No obvious intracranial aneurysms. 2. No suspicious intracranial bleeding, recent or remote. RECOMMENDATION: CTA head for further evaluation. Electronically Signed: Rudy Ho MD at 11:32 EDT , Head MRA 05/26/24 07:18 IMPRESSION: 1. 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 This is a limited MRA of the head which does not include the brain AVM in the cerebral convexity. 2. No suspicious intracranial aneurysm or flow related aneurysm but again this is a limited MRA of the head which does not include the brain AVM in the cerebral convexity. RECOMMENDATION: CTA head for further evaluation of brain AVM. Electronically Signed: Rudy Ho MD at 11:06 EDT , Head CTA 05/26/24 12:20 IMPRESSION: Right parasagittal convexity mixed gyral and subcortical type of brain AVM involving the right superior frontal gyrus and right paracentral lobule with a dominant dysplastic arterial feeder coming from the callosomarginal branch of the right anterior pericallosal artery and smaller arterial feeders coming from the right middle cerebral artery and the medial lenticulostriate branch of the right proximal M1 segment. No obvious intracranial aneurysms and no flow-related aneurysms. The dilated dominant and dysplastic draining veins involves the superficial cortical veins draining into the superior sagittal sinus. No venous stenosis or venous aneurysms of the superficial cortical draining veins. No associated AV fistula. No deep draining veins and no obvious dural feeders coming from the right middle meningeal artery. Electronically Signed: Rudy Ho MD at 13:50 EDT , Left shoulder x-ray as interpreted by the emergency medicine physician reveals an anterior dislocation with greater tuberosity fracture Status post reduction left shoulder x-ray as interpreted by the emergency medicine physician reveals reduction of the dislocation with persistent fracture of the greater tubercle <Dr. Bill Del Toro MD - Last Filed: 05/26/24 15:02> [facility] Lab Data Labs: Laboratory Results - last 24 hr 05/26/24 05/26/24 05/26/24 05:59 06:02 10:12 WBC 13.2 H RBC 4.92 Hgb 14.4 Hct 44.6 MCV 90.7 MCH 29.3 MCHC 32.3 RDW Std Deviation 46.0 H RDW Coeff of Maribel 13.7 Plt Count 304 MPV 10.7 Immature Gran % (Auto) 1.400 H Neut % (Auto) 61.9 Lymph % (Auto) 26.8 [place] % (Auto) 6.1 [place]os % (Auto) 3.2 Baso % (Auto) 0.6 Absolute Neuts (auto) 8.2 H Absolute Lymphs (auto) 3.54 Nucleated RBC % 0 Sodium 138 Potassium 3.0 L Chloride 107 Carbon Dioxide 25.0 Anion Gap 6 BUN 15 Creatinine 1.07 Estim Creat Clear Calc 133.25 Est GFR (MDRD) Af Amer 105 Est GFR (MDRD) Non-Af 86 BUN/Creatinine Ratio 14.0 Glucose 139 H Lactic Acid 2.3 H* 2.7 H* Calcium 8.3 L Magnesium 1.8 Radiography Diagnostic Testing: Clinical Impression(s) from Imaging Studies Brain CT 05/26/24 05:56 IMPRESSION: 1. 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 Recommend MRI/MRA for further characterization, if not previously done. 2. No demonstrated acute intracranial process. Electronically Signed: Jignesh Blandon MD at 6:43 EDT , Shoulder X-Ray 05/26/24 05:56 IMPRESSION: Anterior shoulder dislocation. Displaced fracture of the greater humeral tubercle. Electronically Signed: Jignesh Blandon MD at 7:03 EDT , Shoulder X-Ray 05/26/24 07:00 IMPRESSION: 1. Successful reduction of anterior shoulder dislocation. 2. Fracture through the base of the greater humeral tubercle, with inferior displacement. Electronically Signed: Jignesh Blandon MD at 7:49 EDT , Brain MRI 05/26/24 07:18 IMPRESSION: 1. 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 The overall size of the AVM nidus is 3.3 x 2.3 x 3.7 cm. This has superficial cortical draining veins draining into the superior sagittal sinus without obvious deep draining veins. The dominant dysplastic arterial feeder comes from the right anterior pericallosal artery and smaller arterial feeders coming from the right middle cerebral artery and right medial lenticulostriate artery. No obvious intracranial aneurysms. 2. No suspicious intracranial bleeding, recent or remote. RECOMMENDATION: CTA head for further evaluation. Electronically Signed: Rudy Ho MD at 11:32 EDT , Head MRA 05/26/24 07:18 IMPRESSION: 1. 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 This is a limited MRA of the head which does not include the brain AVM in the cerebral convexity. 2. No suspicious intracranial aneurysm or flow related aneurysm but again this is a limited MRA of the head which does not include the brain AVM in the cerebral convexity. RECOMMENDATION: CTA head for further evaluation of brain AVM. Electronically Signed: Rudy Ho MD at 11:06 EDT , Head CTA 05/26/24 12:20 IMPRESSION: Right parasagittal convexity mixed gyral and subcortical type of brain AVM involving the right superior frontal gyrus and right paracentral lobule with a dominant dysplastic arterial feeder coming from the callosomarginal branch of the right anterior pericallosal artery and smaller arterial feeders coming from the right middle cerebral artery and the medial lenticulostriate branch of the right proximal M1 segment. No obvious intracranial aneurysms and no flow-related aneurysms. The dilated dominant and dysplastic draining veins involves the superficial cortical veins draining into the superior sagittal sinus. No venous stenosis or venous aneurysms of the superficial cortical draining veins. No associated AV fistula. No deep draining veins and no obvious dural feeders coming from the right middle meningeal artery. Electronically Signed: Rudy Ho MD at 13:50 EDT , Treatment and Re-Evaluation :: Patient was informed why a CTA of the head is needed. He was told there is a possibility he will require admission to the hospital. Comments:: The CTA report was read. Since there is no aneurysm, flow abnormality or hemorrhage will have him follow-up with neurology. Plan is to discharge to home. Procedures <Dr. Scot Dumas, - Last Filed: 05/28/24 22:00> Procedural Sedation 1 (Initial Baseline): Consent Signed: Yes Any Problems With Anesthesia: No You/Your family experience fever (hyperthermia) w/anesthesia: No Sedation medication: Versed Dose: 140 Route: IV Maliampati Score: Class II ASA Classification: I Comment:: Approximate total conscious sedation time of 15 minutes Discharge Plan Triage Chief Complaint: Alt LOC ED Provider: Scot Dumas Dx/Rx/DC Orders Clinical Impression: Seizure-like activity, Anterior shoulder dislocation, Closed fracture of shoulder, Acute hypokalemia, Arteriovenous malformation of brain Instructions: ED Dislocation: Shoulder (Reduced), ED Sling and Swathe, ED Seizure New [facility] Adult Prescriptions: New oxycodone-acetaminophen [Percocet] 5-325 mg tablet 1 tab PO Q6H PRN (Reason: pain) 3 Days Qty: 12 0RF potassium chloride 10 mEq capsule, extended release 10 meq PO DAILY 7 Days Qty: 7 0RF No Action omeprazole 20 mg capsule,delayed release(DR/EC) 40 mg PO DAILY escitalopram oxalate 20 mg tablet 20 mg PO DAILY Stand Alone Forms: ED Work / School Excuse Primary Care Provider: Paulette Rubi Referrals: Mynor Barlow DO [Med Staff - Active Staff] - Shahid Mcintosh MD [Non-Staff -Ordering Privileges] - Care Physician,No Primary [Non-Staff] - Activity Restrictions/Additional Instructions: Please do not drive or operate heavy machinery until you follow with neurology secondary to your seizure activity that occurred this morning. Also follow-up with orthopedics regarding your shoulder dislocation with fracture. Take the potassium as directed to bring this value into a normal range and return to the ER should you have any further concerns Print Language: Macedonian Disposition Disposition: Home, Self Care Discharge Date/Time: 05/26/24 15:41
[2024-05-26] MEDS: Ondansetron 4 MG/2 ML Vial IV (06:07)
[2024-05-26] MEDS: Morphine 4 MG/ML Syringe IV (06:07)
[2024-05-26] MEDS: 0.9% Normal Saline (1000mL) 1,000 ML 999 ML IV (06:07)
[2024-05-26 06:12] LABS: Absolute Lymphocyte Count 3.54 X10^3/uL (0.83-4.51); Absolute Neutrophil Count 8.2 X10^3/uL (2.0-7.7); Basophil# 0.08 X10^3/uL; Basophil% 0.6 % (0-1); Eosinophil# 0.42 X10^3/uL; Eosinophils% 3.2 % (0-5); Hematocrit 44.6 % (40-54); Hemoglobin 14.4 g/dL (13.0-16.5); Lymphocyte # 3.54 X10^3/ul (0.83-4.51); Lymphocyte % 26.8 % (19-41); Mean Corp Hgb Conc 32.3 g/dL (32-36); Mean Corpuscular Hgb 29.3 pg (27.0-32.0); Mean Corpuscular Volume 90.7 fL (80-94); Mean Platelet Vol. 10.7 fl (6.2-12.0); Monocyte# 0.81 X10^3/uL; Monocyte% 6.1 % (0-10); NRBC Flagged by Analyzer 0 % (0-5); Neutrophil # 8.17 X10^3/uL (2.7-7.7); Neutrophil % 61.9 % (47-70); Platelet Count 304 K/mm3 (150-450); RBC Distribution Width CV 13.7 % (11.6-14.6); Red Blood Count 4.92 M/mm3 (4.6-6.2); White Blood Count 13.2 K/mm3 (4.4-11.0)
[2024-05-26 06:28] LABS: Anion Gap 6 (5-15); BUN 15 mg/dL (7-18); Calcium,Total 8.3 mg/dL (8.5-10.1); Chloride 107 mmol/L (98-107); Creatinine, Serum 1.07 mg/dL (0.70-1.30); EST Glomerular Filtration Rate 86 mL/min (>60); Est Glom Filt Rate - Afr Amer 105 mL/min (>60); Estimated Creatinine Clearance 133.25 ml/min; Glucose 139 mg/dL (74-106); Magnesium 1.8 mg/dL (1.6-2.6); Sodium Level 138 mmol/L (136-145)
[2024-05-26 06:37] LABS: Lactic Acid 2.3 mmol/L (0.4-1.9)
[2024-05-26] MEDS: Midazolam 5 MG/ML Syringe IV (06:57)
--- NOTE | 2024-05-26 07:00 | RAD_ITS ---
EXAM: XR LEFT SHOULDER, 1 VIEW CLINICAL INDICATION: S/P reduction S/P reduction TECHNIQUE: One view of the left shoulder. COMPARISON: X-ray left shoulder done at 0610 hours. FINDINGS: BONES/JOINTS: There has been successful reduction of previously demonstrated anterior shoulder dislocation. There is redemonstration of an acute traumatic fracture to the base of the greater humeral tubercle. Currently, there is a 1.1 cm inferior displacement of the 6.4 cm bone fracture fragment. No sclerotic or destructive changes observed. SOFT TISSUES: Unremarkable. No soft tissue swelling or gas. No radiopaque foreign body. RAD/Shoulder One View IMPRESSION: 1. Successful reduction of anterior shoulder dislocation. 2. Fracture through the base of the greater humeral tubercle, with inferior displacement. Electronically Signed: Jignesh Blandon MD at 7:49 EDT ,
--- NOTE | 2024-05-26 07:18 | MRI_ITS ---
EXAM: MR HEAD WITHOUT AND WITH INTRAVENOUS CONTRAST CLINICAL INDICATION: New onset seizure with abnormal CT scan TECHNIQUE: Multiplanar and multisequence MR images of the brain were obtained without and with intravenous contrast. CONTRAST: 24ML IV CLARISCAN COMPARISON: CT head without contrast 05/26/2024 and 05/10/2012. FINDINGS: BRAIN AND EXTRA-AXIAL SPACES: Abnormal right paracentral lobule and the posterior right superior frontal gyrus containing brain AVM. No intra- or extra-axial hemorrhage. No evidence of acute infarct. No intracranial mass or mass effect. There is preservation of the gonzalez/white matter interface. Posterior fossa structures are unremarkable. Ventricles are appropriate for age. No hydrocephalus. Basal cisterns are patent. SELLA: Unremarkable. Normal sella turcica, pituitary gland, infundibular stalk, optic chiasm and hypothalamus. AUDITORY SYSTEM: Unremarkable. The internal auditory canals are patent. BONES/JOINTS: Unremarkable. No discrete lytic or blastic abnormalities. SINUSES: Unremarkable as visualized. Clear. MASTOID AIR CELLS: Unremarkable as visualized. Clear. ORBITS: Unremarkable as visualized. Both globes, extraocular muscles, optic nerves and retrobulbar fat appear unremarkable. VASCULATURE: There is a right parasagittal convexity brain AVM located in the right paracentral lobule in the right posterior superior frontal gyrus. The AVM nidus measures approximately 3.3 x 2.3 x 3.7 cm with superficial draining veins draining into the superior sagittal sinus. The main arterial feeder comes from the right anterior pericallosal artery. There are small arterial feeders coming from the right middle cerebral artery and right medial lenticulostriate artery. No obvious deep draining veins. No obvious intranidal aneurysm. MRI/Brain W/WO Contrast IMPRESSION: 1. 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 The overall size of the AVM nidus is 3.3 x 2.3 x 3.7 cm. This has superficial cortical draining veins draining into the superior sagittal sinus without obvious deep draining veins. The dominant dysplastic arterial feeder comes from the right anterior pericallosal artery and smaller arterial feeders coming from the right middle cerebral artery and right medial lenticulostriate artery. No obvious intracranial aneurysms. 2. No suspicious intracranial bleeding, recent or remote. RECOMMENDATION: CTA head for further evaluation. Electronically Signed: Rudy Ho MD at 11:32 EDT ,
--- NOTE | 2024-05-26 07:18 | MRI_ITS ---
STUDY: MRA OF THE HEAD WITHOUT CONTRAST REASON FOR EXAM: Male, 28 years old. New onset seizure with abnormal CT TECHNIQUE: 3-D wthv-or-quizaa (TOF) imaging was performed with MIPs. The study was performed unenhanced. COMPARISON: CT head without contrast 05/26/2024 at 05/10/2012. FINDINGS: Normal bilateral petrous carotid arteries. Normal right cavernous carotid artery with a normal supraclinoid bifurcation. Normal left cavernous carotid artery with a normal supraclinoid bifurcation. Normal right A1 segment of the anterior cerebral artery. Normal left A1 segment of the anterior cerebral artery. Normal intact anterior communicating artery (ACOM). Prominent right pericallosal artery more than left pericallosal artery. Normal right M1 and M2 segments of the middle cerebral arteries, with a normal M1 bifurcation. Normal left M1 and M2 segments of the middle cerebral arteries, with a normal M1 bifurcation. Normal right posterior communicating artery (PCOM). No visible left posterior communicating artery (PCOM). Normal bilateral vertebral arteries. Normal basilar artery with a normal basilar bifurcation. The visualized bilateral superior cerebellar (SCA) arteries are normal. Normal bilateral P1, P2 and visualized P3 segments of the posterior cerebral arteries. There is no demonstrated aneurysm of the [place]. There is no major vessel occlusion or hemodynamically significant stenosis. MRI/MRA Head ONLY without Contrast IMPRESSION: 1. 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 This is a limited MRA of the head which does not include the brain AVM in the cerebral convexity. 2. No suspicious intracranial aneurysm or flow related aneurysm but again this is a limited MRA of the head which does not include the brain AVM in the cerebral convexity. RECOMMENDATION: CTA head for further evaluation of brain AVM. Electronically Signed: Rudy Ho MD at 11:06 EDT ,
[2024-05-26] MEDS: Propofol 200 MG/20 ML Vial IV BOLUS (07:36)
[2024-05-26] MEDS: HYDROmorphone 1 MG/ML Syringe IV (08:16)
[2024-05-26] MEDS: HYDROmorphone 0.5 MG/0.5 ML SYRINGE IV ×2 (09:57→12:28)
[2024-05-26 10:02] LABS: Reflex Lactate? Y
--- NOTE | 2024-05-26 11:29 | ED.RN ---
LACTIC 2.7. DR LOVING INFORMED
[2024-05-26 11:30] LABS: Lactic Acid 2.7 mmol/L (0.4-1.9)
--- NOTE | 2024-05-26 11:45 | CM.ED ---
Social Work Reason for intervention: No pcp Referral Source: Case find Patient was seen in room, sitting in bed, alert and oriented. Mother and fiance also in room, patient okay with speaking with SW with both present. Introduced self and explained role at hospital. SW let patient know reason for visit was to provide information regarding Primary Care physicians since none were listed in patients medical file, however upon further discussion patient stated that he has been seeing a physician at [facility]. Patient also discussed reason for being in the hospital, supportive listening provided. Pamphlet provided with specialty physicians should patient need assistance finding local doctors. Patient and family accepting of information. Vianney Edge, VEIN PUMPER, SUPERVISING EDITOR [employer]
--- NOTE | 2024-05-26 12:20 | CT_ITS ---
STUDY: CTA OF THE BRAIN REASON FOR EXAM: Male, 28 years old. Right parasagittal convexity brain AVM. RADIATION DOSAGE (If Supplied By Facility): CTDIvol = ( 14.77 ) mGy, DLP = ( 454.87 ) mGycm. TECHNIQUE: CT angiography was performed with a multi-detector CT scanner. Data acquisition was obtained from the skull base through the vertex following intravenous administration of 100 mL of Isovue-370. MIP images were reconstructed from the axial data set. Post-processing of the angiographic images was performed, with multiplanar reformation and 3D reconstruction. Individualized dose optimization techniques were used for this CT. The protocol utilizes one or more of the following dose reduction techniques: automated exposure control, adjustment of mA and/or kV according to patient size, and/or use of iterative reconstruction technique. COMPARISON: MRI brain with and without contrast 05/26/2024. CT head without contrast 05/26/2024. FINDINGS: Normal bilateral petrous carotid arteries. Normal right cavernous carotid artery with a normal supraclinoid bifurcation. Normal left cavernous carotid artery with a normal supraclinoid bifurcation. Normal right A1 segment of the anterior cerebral artery. Normal left A1 segment of the anterior cerebral artery. Normal intact anterior communicating artery (ACOM). Dilated dysplastic callosomarginal branch of the right pericallosal artery is the dominant arterial feeder to the right parasagittal gyral AVM in the right superior frontal gyrus and right paracentral lobule. No obvious dysplastic left pericallosal artery. Normal right M1 and M2 segments of the middle cerebral arteries, with a normal M1 bifurcation. Smaller dysplastic arterial feeder coming from the right medial lenticulostriate artery to the right parasagittal convexity brain AVM. Smaller tortuous arterial feeders coming from M2 and M3 segments of the right middle cerebral artery to the right parasagittal convexity brain AVM. Normal left M1 and M2 segments of the middle cerebral arteries, with a normal M1 bifurcation. Normal right posterior communicating artery (PCOM). No visible left posterior communicating artery (PCOM). Normal bilateral vertebral arteries. Normal basilar artery with a normal basilar bifurcation. The visualized bilateral superior cerebellar (SCA) arteries are normal. Normal bilateral P1, P2 and visualized P3 segments of the posterior cerebral arteries. No flow-related aneurysms and no intracranial aneurysms. There are dysplastic dilated superficial cortical draining veins draining into the superior sagittal sinus. No deep draining veins. The gyral type of brain AVM in the right parasagittal convexity involves the right superior frontal gyrus and right paracentral lobule. No obvious arterial feeders from the right middle meningeal artery. CT/CTA Head W/WO Contrast IMPRESSION: Right parasagittal convexity mixed gyral and subcortical type of brain AVM involving the right superior frontal gyrus and right paracentral lobule with a dominant dysplastic arterial feeder coming from the callosomarginal branch of the right anterior pericallosal artery and smaller arterial feeders coming from the right middle cerebral artery and the medial lenticulostriate branch of the right proximal M1 segment. No obvious intracranial aneurysms and no flow-related aneurysms. The dilated dominant and dysplastic draining veins involves the superficial cortical veins draining into the superior sagittal sinus. No venous stenosis or venous aneurysms of the superficial cortical draining veins. No associated AV fistula. No deep draining veins and no obvious dural feeders coming from the right middle meningeal artery. Electronically Signed: Rudy Ho MD at 13:50 EDT ,
== END 2024-05-26 15:41 | disposition home or self-care (01) ==
PROVIDERS: Emergency Provider Emergency Medicine; Visit Provider Emergency Medicine
DX: R56.9 Unspecified convulsions (principal); E87.6 Hypokalemia; F12.90 Cannabis use, unspecified, uncomplicated; F41.9 Anxiety disorder, unspecified; Z79.899 Other long term (current) drug therapy; F17.290 Nicotine dependence, other tobacco product, uncomplicated; S42.252A Displaced fracture of greater tuberosity of left humerus, initial encounter for closed fracture; D72.829 Elevated white blood cell count, unspecified; Q28.2 Arteriovenous malformation of cerebral vessels; X58.XXXA Exposure to other specified factors, initial encounter
CPT/HCPCS: 23665; 70450; 70496; 70544; 70553; 73020; 73030; 80048; 83605; 83735; 85025; 96361; 96374; 96375; 96376; 99152; 99282; A9575; J7030; Q9967; A4216; J2405

== ENCOUNTER 2024-09-23 16:30 | Outpatient (RCR) | payer BC, SELFPAY ==
--- NOTE | 2024-07-15 16:36 | HP.PTEVAL_ITS ---
Patient's Visit Information Visit Information Visit Information: MARIBEL ARCEO is a 28 year old M referred to Physical Therapy by Theron Wooten DO with a diagnosis of L shouldergreater tuberosity fracture humerus repair 06/12. Date of Evaluation: 07/15/24 Physical Therapist: Rajat Sterling, JOSET, OCS, CSCS Visit Plan Frequency: 2x /Week Duration: 3 Months Plan: 1-2x/week for up to 12 weeks. IE today HEP is supine stick flexion 10, stick er 10x, scap circles 20x, towel IR 10x all 2x/day and activity modificaiton to void any lifting with pain. No strengthening until 12 weeks(early august) treat with MH, scar massage, PROM, arm distraction, AAROM to aROM exercise progression. Progression of HEP with pics. ice if needed. Subjective Subjective: L shoulder surgery 06/12 reattaching top of humerus after having seizure in sleep and muscle pulled a chunk off. 2 screws to hold in place. Seizure was 3 weeks prior. No more seizures, on meds. In sling much of time, saw surgeon last week and doing well. Weaning out of sling. Sleeping is not great and shoulder pain is part of that. Has pain in L shoulder helped by heating pad. No pain at rest. Given ex: arm raises, pendulum, PROM. Employed: [employer], Off due to this approved to go back soon. basic ADLS dress I, bathroom I, shower I. Steps at home no problem, some discomfort with dressing, hurts to move arm differently. Hobbies: shop at home working on cars, has not been doing that lately, maybe a little. R handed. video games are fine. Pain L shoulder: Pain Intensity (Out of 10): 0 Pain Intensity Range: 0 and 5 Objective Objective: Ambulates I into PT with sling and trasnfers I, good balance. dons and doffs sling I today. Full cervical and scapular ROM without pain B elbow and wrist B AROM WFL and no pain. R shoulder AROM 165 elevation, 85 er, L3 IR. L shoulder AROM 105 flexion, 100 abduction, 25 er, l5 IR. PROM to 125 flexion and 40 er, strength L arm not tested. R arm 5/5 in all motions. incision is healed well on L lateral shoulder, dry opening proximal, no signs of excessive redness heat or swelling. Balance/Special Test Scores Quick DASH Score: 36.3625 Goals Goal 1:: AROM L shoulder 165 elevation, 80er, l3 IR without pain or forward leaning. Goal Time Frame: 4-6 Weeks Goal 2:: Pain 90% better and only with end range elevation/rotation. Goal Time Frame: 4-6 Weeks Goal 3:: return to work without pain or problems within limitations Goal Time Frame: 4-6 Weeks Goal 4:: Pt report 100% improvement in overall shoulder funciton L Goal Time Frame: 8-12 Weeks Goal 5:: back to all activity in his shop without limitations. Goal Time Frame: 8-12 Weeks Goal 6:: I appropriate HEP to limit future problems Goal Time Frame: 8-12 Weeks Rehabilitation Potential Physical Therapy Diagnosis: L shoulder stiffness and weakness after recent fracture and surgery Rehabilitation Potential: Excellent Anticipated Interventions Patient/Client Instruction: Educate patient on: Condition and Plan of Care For the Purpose of:: To decrease pain, To increase ROM, To improve muscle performance and motor function and To increase tolerance to activity/condition/position Therapeutic Exercise to Include: Postural training, Passive ROM and Active ROM For the Purpose of:: To decrease pain, To increase ROM, To increase tolerance to activity/condition/position and To decrease soft tissue restriction Manual Therapy Techniques to Include: Scar massage, Passive ROM and Soft tissue mobilization For the Purpose of:: To decrease pain, To increase ROM, To improve nutrient delivery to tissue and To improve muscle performance and motor function Cryotherapy (ice pack, ice massage): Yes Thermo therapy (hot pack): Yes For the Purpose of:: To decrease pain, To increase ROM and To improve nutrient delivery to tissue Text: Thank you for the opportunity to evaluate your patient. For Medicare and Medicare HMO plans, please review the plan of care and approve it. It will need to be FAXED BACK to us at [phone] for Medicare purposes. For Medicare only, by signing this I certify the plan of care. Please let me know if there are questions or concerns regarding this plan of care. Physician Signature: Date:
--- NOTE | 2024-09-23 16:53 | HP.PTDCSUM ---
Discharge Summary D/C summary: It has been my pleasure to treat MARIEBL ARCEO referred by Theron Wooten DO, with the diagnosis of L shoulder greater tuberosity fracture humerus repair 06/12 for a total of 11 visit(s). Discharge Date: 09/23/24 Please see the following information for a summary of their discharge status. 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 Soreness 2/10. Sleeping is OK. Doing HEP at home. Activities are normal at home and at work. 95% better, remaining 5% is lifting overhead. Pain L shoulder: Pain Intensity (Out of 10): 3 Overall Improvement % Improvement: 95 Objective Objective/Function: Full aROM L arm to R, 170 flexion adn abd, 80 er, L1 IR. strength is 5/5 flexion adn abd adn ir, 4+ er in L UE. Funcitonally doing very well and only having expected soreness. Goals Goal 1:: AROM L shoulder 165 elevation, 80er, l3 IR without pain or forward leaning. Goal Progress: Goal Met Goal 2:: Pain 90% better and only with end range elevation/rotation. Goal Progress: Goal Met Goal 3:: return to work without pain or problems within limitations Goal Progress: Goal Met Goal 4:: Pt report 100% improvement in overall shoulder funciton L Goal Progress: 95% Goal 5:: back to all activity in his shop without limitations. Goal Progress: 95% Goal 6:: I appropriate HEP to limit future problems Goal Progress: Goal Met Plan Plan: pt to continue cvia HEP and d/c PT D/C Information d/c sentence: If there are questions or concerns regarding this patient's physical therapy, please feel free to call me at [phone]. Thank you for the referral of this patient. Sincerely, Rajat Sterling, DPT, OCS, CSCS Balance/Gait/Functional tests Balance/Special Test Scores Quick DASH Score: 4.5450 Improvement % Improvement: 95
== END 2024-09-23 19:00 | disposition home or self-care (01) ==
LOC: PT 16:30
PROVIDERS: Referring Provider Orthopaedic Surgery; Visit Provider Orthopaedic Surgery
DX: S42.252D Displaced fracture of greater tuberosity of left humerus, subsequent encounter for fracture with routine healing (principal)
CPT/HCPCS: 97110; 97161; 97530